=== PATIENT | male | born 1965 | race Hispanic/Latino ===

== ENCOUNTER 2022-10-24 09:28 | Inpatient (IN) | payer OTHER ==
[~2022-10-24] VITALS: Ht 160 cm; Wt 77.1 kg
[2022-10-24] VITALS (12 sets, daily range): BP systolic 64–167; BP diastolic 32–120
[2022-10-24 09:47] LABS: BASOPHILS % (AUTO) 0.2 % (0.0-5.0); HEMATOCRIT 24.9 % (42-54); LYMPHOCYTES % (AUTO) 8.7 % (21.0-51.0); MEAN CORPUSCULAR HEMOGLOBIN 32.5 pg (27.0-33.0); MEAN CORPUSCULAR HGB CONC 32.9 g/dL (32.0-36.0); MEAN CORPUSCULAR VOLUME 98.8 fL (79-99); MONOCYTES % (AUTO) 6.4 % (3.0-13.0); NEUTROPHILS % (AUTO) 82.9 % (40.0-77.0); NUCLEATED RED BLOOD CELLS 0.1 % (0.0-0.19); PLATELET COUNT (AUTO) 391 K/uL (130-400); RED BLOOD CELL COUNT(AUTO) 2.52 MIL/uL (4.50-6.20); RED CELL DISTRIBUTION WIDTH 14.9 % (11.0-15.5); WHITE BLOOD COUNT (AUTO) 18.5 K/uL (4.8-10.8)
[2022-10-24 10:01] LABS: ALBUMIN 1.6 g/dL (3.5-5.0); CREATININE 1.3 mg/dL (0.5-1.5); POTASSIUM 4.1 mmol/L (3.5-5.1); TOTAL PROTEIN, SERUM 5.1 g/dL (6.0-8.3)
[2022-10-24] MEDS ORDERED: LACTATED RINGERS 1000ML 1,707 ML IV ONE (10:30)
[2022-10-24] MEDS ORDERED: ZOSYN 3.375GM +NS 50ML IVPB ONE (10:30)
[2022-10-24 11:31] LABS: MAGNESIUM 1.8 mg/dL (1.80-2.40)
[2022-10-24 11:54] LABS: INR 1.22 (0.85-1.15)
[2022-10-24 11:55] LABS: PARTIAL THROMBOPLASTIN TIME 31.3 SEC (26.3-35.5)
[2022-10-24 13:00] LABS: BASE EXCESS,VENOUS BLOOD GAS -2.9 (-2.0-3.0); HCO3,VENOUS BLOOD GAS 22.4 (21.0-28.0); PCO2,VENOUS BLOOD GAS 41 (35-48); PH,VENOUS BLOOD GAS 7.353 (7.350-7.450)
[2022-10-24] MEDS ORDERED: ACETAMINOPHEN 500 MG TABLET PO PRN ×2 (14:00→19:30)
[2022-10-24] MEDS ORDERED: INSULIN REGULAR, HUMAN 3ML 100 UNIT in 0.9%NACL 100ML 99 ML IV PRN ×2 (14:00)
[2022-10-24] MEDS ORDERED: DEXTROSE 5 %-0.45 % NACL 1,000 ML IV PRN (14:00)
[2022-10-24] MEDS ORDERED: ONDANSETRON 4MG INJ IVP PRN (14:00)
[2022-10-24] MEDS ORDERED: PANTOPRAZOLE 40MG INJ 80 MG in 0.9%NACL 100ML 100 ML IVP SCH ×2 (16:00→16:30)
[2022-10-24] MEDS ORDERED: ERYTHROMYCIN LACTOBIONATE 250 MG in 0.9%NACL 100ML 100 ML IV SCH (16:00)
[2022-10-24] MEDS ORDERED: PANTOPRAZOLE 40 MG/VIAL IVP ONE (16:00)
[2022-10-24 16:19] LABS: BASOPHILS % (AUTO) 0.2 % (0.0-5.0); EOSINOPHILS % (AUTO) 0.1 % (0.0-8.0); HEMATOCRIT 22.7 % (42-54); LYMPHOCYTES % (AUTO) 12.5 % (21.0-51.0); MEAN CORPUSCULAR HGB CONC 32.6 g/dL (32.0-36.0); MEAN CORPUSCULAR VOLUME 98.3 fL (79-99); MONOCYTES % (AUTO) 4.3 % (3.0-13.0); NEUTROPHILS % (AUTO) 82.1 % (40.0-77.0); PLATELET COUNT (AUTO) 322 K/uL (130-400); RED BLOOD CELL COUNT(AUTO) 2.31 MIL/uL (4.50-6.20); RED CELL DISTRIBUTION WIDTH 14.8 % (11.0-15.5); WHITE BLOOD COUNT (AUTO) 17.1 K/uL (4.8-10.8)
[2022-10-24] MEDS ORDERED: NOREPINEPHRIN 4MG/NS 250ML 250 ML IV ONE (19:03)
[2022-10-24] MEDS ORDERED: NOREPINEPHRIN 4MG/NS 250ML 250 ML IV SCH (19:30)
[2022-10-24] MEDS ORDERED: LORAZEPAM 2 MG/ML 1 ML VIAL IVP PRN (19:30)
[2022-10-24] MEDS ORDERED: GLUCAGON 1MG KIT 1 MG ML IM PRN (19:30)
[2022-10-24] MEDS ORDERED: ONDANSETRON 4MG INJ IV PRN (19:30)
[2022-10-24] MEDS ORDERED: PHARMACY COMMUNICATION MISC PRN (19:30)
[2022-10-24] MEDS ORDERED: OCTREOTIDE ACETATE 500 MCG in 0.9%NACL 100ML 97.5 ML IV SCH (19:30)
[2022-10-24] MEDS ORDERED: THIAMINE HCL 100 MG, FOLIC ACID 1 MG, M.V.I. IV [ADULT] 10 ML in 0.9%NACL 1000ML 1,000 ML IV SCH (19:30)
[2022-10-24] MEDS ORDERED: CHLORDIAZEPOXIDE HCL 25 MG CAP PO PRN (19:30)
[2022-10-24] MEDS ORDERED: DEXTROSE 50%-WATER 50 ML DISP.SYRIN IV PRN (19:30)
[2022-10-24] MEDS ORDERED: DiphenhydrAMINE HCL 50 MG/ML VIAL IV ONE (19:30)
[2022-10-24 19:58] LABS: MAGNESIUM 1.8 mg/dL (1.80-2.40); PHOSPHORUS 3.9 mg/dL (2.5-4.9)
[2022-10-24] MEDS ORDERED: DiphenhydrAMINE HCL 50 MG/ML VIAL ONE (20:05)
[2022-10-24] MEDS ORDERED: VASOPRESSIN 20 UNITS in 0.9%NACL 100ML 99 ML IV PRN (20:30)
[2022-10-24] MEDS ORDERED: PHENYLEPHRINE HCL 50 MG in 0.9% NACL 250ML 245 ML IV PRN (20:30)
[2022-10-24] MEDS ORDERED: FAMOTIDINE 20MG VIAL IV SCH (21:00)
[2022-10-24 21:03] LABS: ABG BASE EXCESS -16.6 mmol/L (-2.0-3.0); ABG HCO3 12.5 mmol/L (21.0-28.0); ABG OXYGEN SATURATION 99.8 % (95.0-99.0); ABG PCO2 41 mmHg (35-48)
[2022-10-24] MEDS ORDERED: SODIUM BICARB 50MEQ 50ML VIAL 200 ML ONE (21:17)
[2022-10-24] MEDS ORDERED: SODIUM BICARB 50MEQ 50ML VIAL 150 ML ONE (21:18)
[2022-10-24 21:25] LABS: BASOPHILS % (AUTO) 0.4 % (0.0-5.0); EOSINOPHILS % (AUTO) 0.2 % (0.0-8.0); HEMATOCRIT 24.7 % (42-54); LYMPHOCYTES % (AUTO) 25.2 % (21.0-51.0); MEAN CORPUSCULAR HEMOGLOBIN 30.3 pg (27.0-33.0); MEAN CORPUSCULAR HGB CONC 30.8 g/dL (32.0-36.0); MEAN CORPUSCULAR VOLUME 98.4 fL (79-99); MONOCYTES % (AUTO) 6.8 % (3.0-13.0); NUCLEATED RED BLOOD CELLS 0.8 % (0.0-0.19); PLATELET COUNT (AUTO) 339 K/uL (130-400); RED BLOOD CELL COUNT(AUTO) 2.51 MIL/uL (4.50-6.20); RED CELL DISTRIBUTION WIDTH 16.9 % (11.0-15.5); WHITE BLOOD COUNT (AUTO) 29.8 K/uL (4.8-10.8)
[2022-10-24] MEDS ORDERED: SOLU-MEDROL 125MG VIAL IVP SCH (21:30)
[2022-10-24] MEDS ORDERED: SODIUM BICARB 8.4% 50ML SYRING 150 MEQ in DEXTROSE 5%-WATER 1,000 ML IVP SCH (21:30)
[2022-10-24] MEDS ORDERED: SODIUM BICARB 50MEQ 50ML VIAL IV ONE (21:30)
[2022-10-24] MEDS ORDERED: NOREPINEPHRINE BITARTRATE 1 MG/1 ML ML IV ONE (21:38)
[2022-10-24] MEDS ORDERED: PHENYLEPHRINE HCL 10 MG/ML 1ML VIAL IV ONE (21:39)
[2022-10-24] MEDS ORDERED: EPINEPHRINE 1 MG/ML 30ML VIAL IJ ONE (21:44)
[2022-10-24] MEDS ORDERED: MAGNESIUM 2GM PREMIX 50ML 50 ML IV ONE (21:50)
[2022-10-24] MEDS ORDERED: SODIUM BICARB 50MEQ 50ML VIAL IV SCH (21:57)
[2022-10-24] MEDS ORDERED: AMIODARONE 900MG VIAL 900 MG in DEXTROSE 5%-WATER 200 ML IV PRN (22:00)
[2022-10-24] MEDS ORDERED: ALBUMIN (HUMAN) 25% 100 ML IV PRN (23:30)
[2022-10-25] MEDS ORDERED: INSULIN HUMULIN R 100 UNIT/ML 3ML SQ SCH
[2022-10-25] MEDS ORDERED: 0.9%NACL 50ML IV SCH
[2022-10-25] MEDS ORDERED: ZOSYN 3.375GM +NS 50ML IVPB SCH
[2022-10-25] MEDS ORDERED: M.V.I. IV [ADULT] 10 ML, FOLIC ACID 1 MG, THIAMINE HCL 100 MG in 0.9%NACL 1000ML 1,000 ML IV SCH (09:00)
[2022-10-25] MEDS ORDERED: ENOXAPARIN SODIUM 40 MG/0.4 ML SYRINGE SQ SCH (09:00)
== END 2022-10-24 21:57 | DRG 872 ==
LOC: EDH 09:28 → EDHIP 09:29 → 2BH 19:02
PROVIDERS: ADMIT Family Medicine; ATTEND Family Medicine
PROC: 30233N1 Transfusion of Nonautologous Red Blood Cells into Peripheral Vein, Percutaneous Approach (ICD-10-PCS; principal; 2022-10-24)
PROC: 5A1935Z Respiratory Ventilation, Less than 24 Consecutive Hours (ICD-10-PCS; 2022-10-24)
PROC: 0BH17EZ Insertion of Endotracheal Airway into Trachea, Via Natural or Artificial Opening (ICD-10-PCS; 2022-10-24)
DX: A41.9 Sepsis, unspecified organism (principal); K92.1 Melena; E87.20 Acidosis, unspecified; K80.21 Calculus of gallbladder without cholecystitis with obstruction; D64.9 Anemia, unspecified; E88.09 Other disorders of plasma-protein metabolism, not elsewhere classified; W18.39XA Other fall on same level, initial encounter; I10 Essential (primary) hypertension; I46.9 Cardiac arrest, cause unspecified; K31.89 Other diseases of stomach and duodenum; Z91.199 Patient's noncompliance with other medical treatment and regimen due to unspecified reason; Z85.028 Personal history of other malignant neoplasm of stomach; Z83.3 Family history of diabetes mellitus; Z82.49 Family history of ischemic heart disease and other diseases of the circulatory system; Z80.41 Family history of malignant neoplasm of ovary; Z80.0 Family history of malignant neoplasm of digestive organs; Y93.89 Activity, other specified; Y92.89 Other specified places as the place of occurrence of the external cause; Y99.8 Other external cause status
CPT/HCPCS: 31500; 36415; 36600; 71045; 74176; 80053; 82140; 82270; 82435; 82803; 82947; 82948; 83010; 83605; 83615; 83690; 83735; 83880; 84100; 84132; 84295; 85025; 85610; 85730; 86850; 86900; 86901; 86923; 87040; 92950; 93005; 94002; C9113; G0378; J0171; J1200; J1364; J2354; J2370; J2405; J2543; J3411; J3475; J3490; J7030; J7120; P9016